=== PATIENT | male | born 1970 | race Caucasian/White ===

== ENCOUNTER 2019-06-30 07:28 | Emergency (ER) | payer OTHER ==
[~2019-06-30] VITALS: Ht 177.8 cm; Wt 83.1 kg
[2019-06-30] MEDS ORDERED: ONDANSETRON 2MG/ML, 2ML IVPush ONE (08:00)
[2019-06-30] MEDS ORDERED: SODIUM CHLORIDE 0.9% 1,000ML IVBOLUS ONE ×2 (08:00→10:00)
[2019-06-30] MEDS ORDERED: ONDANSETRON 2MG/ML, 2ML ONE (08:11)
--- NOTE | 2019-06-30 08:27 | NUR ---
PT MEDICATED TO MAY, LAYING IN BED, LIGHTS OFF TO PROMOTE REST, AFTER ERP TO BEDSIDE VIA TELEMEDICINE.
[2019-06-30 08:28] LABS: BASOPHILS # (AUTO) 0.01 x10^3/uL (0-0.1); BASOPHILS % (AUTO) 0 % (0-1); EOSINOPHILS # (AUTO) 0.12 x10^3/uL (0-0.4); EOSINOPHILS % (AUTO) 1 % (1-7); LYMPHOCYTES # (AUTO) 1.11 x10^3/uL (1-3.4); LYMPHOCYTES % (AUTO) 8 % (22-44); MD NO; MEAN CORPUSCULAR HEMOGLOBIN 31.6 pg (27.5-34.5); MEAN CORPUSCULAR HGB CONC 33.7 g/dL (33.2-36.2); MEAN CORPUSCULAR VOLUME 93.7 fL (81-97); MEAN PLATELET VOLUME 7.9 fL (7.4-10.4); MONOCYTES % (AUTO) 3 % (2-9); NEUTROPHILS # (AUTO) 13.08 x10^3/uL (1.8-6.8); NEUTROPHILS % (AUTO) 89 % (42-75); PLATELET COUNT 202 x10^3/uL (130-400); RED BLOOD COUNT 5.41 x10^6/uL (4.38-5.82); RED CELL DISTRIBUTION WIDTH 12.9 % (9.4-14.8)
[2019-06-30] MEDS ORDERED: morphine SULFATE 10 MG/ML, 1ML IVPush ONE ×2 (08:30→10:00)
[2019-06-30 08:32] LABS: MICROSCOPIC NOT IND
--- NOTE | 2019-06-30 08:32 | NUR ---
PT TO XRAY.
[2019-06-30 08:36] LABS: CALCIUM 9.4 mg/dL (8.5-10.1); CHLORIDE 108 mmol/L (98-107)
[2019-06-30 08:40] LABS: ALANINE AMINOTRANSFERASE 63 U/L (12-78); ALBUMIN 4.1 g/dL (3.4-5.0); ANION GAP 5 mmol/L (5-15); CREATININE 1.23 mg/dL (0.7-1.3)
[2019-06-30 08:42] LABS: ALKALINE PHOSPHATASE 79 U/L (45-117); BILIRUBIN,TOTAL 0.5 mg/dL (0.2-1.0); TOTAL PROTEIN 7.8 g/dL (6.4-8.2)
[2019-06-30] MEDS ORDERED: MORPHINE SULFATE 4 MG/ML, 1ML ONE ×2 (08:51→10:09)
--- NOTE | 2019-06-30 08:58 | NUR ---
PT LAYING IN BED, FIANCE AT BEDSIDE, RESPIRATIONS EVEN AND UNLABORED, WILL CONTINUE TO MONITOR.
--- NOTE | 2019-06-30 10:22 | NUR ---
SECOND LITER NS DISSCUSSED WITH MD JORDON, HELD PER OBJECTIVE CLINICAL SIGNS INCLUDING VS AND LABS.
[2019-06-30 11:09] VITALS: BP 133/89
== END 2019-06-30 11:12 | disposition home or self-care (01) ==
LOC: ED 08:05
DX: K64.8 Other hemorrhoids (principal); R10.84 Generalized abdominal pain; R11.0 Nausea; R19.7 Diarrhea, unspecified; Z90.89 Acquired absence of other organs; Z88.2 Allergy status to sulfonamides
CPT/HCPCS: 36415; 74021; 76705; 80053; 81003; 83690; 85025; 96361; 96374; 96375; 96376; 99285; J2270; J2405; J7030

== ENCOUNTER 2020-01-14 16:10 | Observation (INO) | payer OTHER ==
[~2020-01-14] VITALS: Ht 177.8 cm; Wt 82.2 kg
[2020-01-14] MEDS ORDERED: SODIUM CHLORIDE FLUSH 10ML SYR IVF ONE ×2 (17:00→18:30)
[2020-01-14 17:07] LABS: BASOPHILS % (AUTO) 0 % (0-1); EOSINOPHILS % (AUTO) 2 % (1-7); LYMPHOCYTES % (AUTO) 22 % (22-44); MEAN CORPUSCULAR HEMOGLOBIN 30.8 pg (27.5-34.5); MEAN CORPUSCULAR HGB CONC 33.6 g/dL (33.2-36.2); MEAN PLATELET VOLUME 7.9 fL (7.4-10.4); MONOCYTES % (AUTO) 6 % (2-9); NEUTROPHILS % (AUTO) 71 % (42-75); PLATELET COUNT 199 x10^3/uL (130-400); RED CELL DISTRIBUTION WIDTH 12.6 % (9.4-14.8)
[2020-01-14 17:11] LABS: MD NO
[2020-01-14 17:19] LABS: ALBUMIN 4.1 g/dL (3.4-5.0); ANION GAP 5 mmol/L (5-15); CALCIUM 9.5 mg/dL (8.5-10.1); CHLORIDE 108 mmol/L (98-107)
[2020-01-14 17:23] LABS: ALANINE AMINOTRANSFERASE 51 U/L (12-78); ALKALINE PHOSPHATASE 83 U/L (45-117); BILIRUBIN,TOTAL 0.6 mg/dL (0.2-1.0); CREATININE 1.26 mg/dL (0.7-1.3); TOTAL PROTEIN 7.4 g/dL (6.4-8.2)
--- NOTE | 2020-01-14 17:25 | NUR ---
PT IN GOWN IN [facility]. PT ATTACHED TO VS MONITORS. PIV ESTABLISHED. PT HAS CALL LIGHT WITHIN REACH AT THIS TIME; AWAITING ERP.
--- NOTE | 2020-01-14 17:58 | NUR ---
YELLOW SLIP SENT TO PHARMACY AT THIS TIME FOR IV ABX. IV FLUIDS INITIATED PER MAR AT THIS TIME.
[2020-01-14] MEDS ORDERED: SODIUM CHLORIDE 0.9% 1,000ML IVBOLUS ONE (18:00)
[2020-01-14] MEDS ORDERED: CEFOTETAN PMX 1GM/50ML 50 ML IVPB ONE (18:00)
--- NOTE | 2020-01-14 18:15 | NUR ---
COVID SWAB OBTAINED AND WALKED TO LAB AT THIS TIME.
--- NOTE | 2020-01-14 18:22 | NUR ---
REPORT OF PT TO DIRECTOR OF HEAD START AT THIS TIME. ALL QUESTIONS ANSWERED. PER OR, PT TO BE PICKED UP BY TRANSPORT STAFF WITHIN THE NEXT 5 MINUTES
[2020-01-14] MEDS ORDERED: EPINEPHRINE 1 MG/ML, 1ML ONE (18:33)
[2020-01-14] MEDS ORDERED: BUPIVACAINE/PF 0.5% ONE (18:33)
--- NOTE | 2020-01-14 18:34 | NUR ---
PT TO OR AT THIS TIME
[2020-01-14] MEDS ORDERED: MIDAZOLAM 1 MG/ML, 2ML ONE (18:55)
[2020-01-14] MEDS ORDERED: FENTANYL PF 250 MCG/5ML ONE (18:55)
[2020-01-14] MEDS ORDERED: BUPIVACAINE/EPI 0.5% 1:200K IM ONE (19:20)
[2020-01-14] MEDS ORDERED: LABETALOL 5MG/ML, 20ML IV PRN (19:30)
[2020-01-14] MEDS ORDERED: morphine SULFATE 10 MG/ML, 1ML IVPush PRN (19:30)
[2020-01-14] MEDS ORDERED: hydrALAzine 20 MG/ML, 1ML IV PRN (19:30)
[2020-01-14] MEDS ORDERED: ONDANSETRON 2MG/ML, 2ML IVPush PRN (19:30)
[2020-01-14] MEDS ORDERED: ACETAMINOPHEN 325 MG TABLET PO PRN (19:30)
[2020-01-14] MEDS ORDERED: OXYcodone 5 MG/5 ML ORAL.SOL UDC PO PRN ×2 (19:30→22:30)
[2020-01-14] MEDS ORDERED: GLYCOPYRROLATE 0.2MG/1ML, 5ML ONE (19:41)
[2020-01-14] MEDS ORDERED: NEOSTIGMINE 1 MG/ML, 10ML ONE (19:41)
[2020-01-14] MEDS ORDERED: CEFAZOLIN 1,000 MG ONE (19:41)
[2020-01-14] MEDS ORDERED: SUCCINYLCHOLINE 20 MG/ML, 10ML ONE (19:41)
[2020-01-14] MEDS ORDERED: ROCURONIUM 10MG/ML,5ML ONE (19:41)
[2020-01-14] MEDS ORDERED: PROPOFOL 10 MG/ML, 20ML ONE (19:41)
[2020-01-14] MEDS ORDERED: FENTANYL PF 100 MCG/2ML ONE ×2 (20:07→20:26)
[2020-01-14] MEDS ORDERED: MEPERIDINE/PF 25MG/ML,1ML ONE ×2 (20:07→20:37)
[2020-01-14] MEDS: FENTANYL PF 100 MCG/2ML IV PRN ×4 (20:11→20:38)
[2020-01-14] MEDS: MEPERIDINE/PF 25MG/0.5ML IVPush PRN ×2 (20:14→20:51)
[2020-01-14] MEDS ORDERED: OXYcodone 5 MG/5 ML ORAL.SOL UDC ONE (20:19)
[2020-01-14] MEDS ORDERED: HYDROmorphone 2 MG/ML, 1ML ONE (20:19)
[2020-01-14] MEDS: HYDROmorphone 1 MG/ML, 1ML INJ IVPush PRN ×2 (20:22→20:33)
[2020-01-14 21:51] VITALS: BP 118/79
[2020-01-14] MEDS ORDERED: DIPHENHYDRAMINE 25 MG CAPSULE PO PRN (22:30)
[2020-01-14] MEDS ORDERED: KETOROLAC 30 MG/1 ML IV SCH (22:30)
[2020-01-14] MEDS ORDERED: DIPHENHYDRAMINE 50 MG/ML, 1ML IV PRN (22:30)
[2020-01-14] MEDS ORDERED: POTASSIUM CHLORIDE 20 MEQ in D5%-0.45% NACL 1,000 ML IV SCH (22:30)
[2020-01-14] MEDS ORDERED: HYDROmorphone 2 MG/ML, 1ML IVPush PRN (22:30)
[2020-01-14] MEDS ORDERED: ACETAMINOPHEN 325 MG TABLET PO SCH (22:30)
[2020-01-14] MEDS ORDERED: PANT20TA2 PO (22:47)
[2020-01-14] MEDS ORDERED: AZEL137S4 NAS (22:47)
[2020-01-14] MEDS ORDERED: AMIT10TA PO (22:47)
[2020-01-14] MEDS ORDERED: LORA-445 PO (22:51)
[2020-01-15] MEDS ORDERED: ENOXAPARIN 40 MG/0.4 ML SQ SCH (07:00)
[2020-01-15] MEDS ORDERED: SODIUM CHLORIDE FLUSH 10ML SYR IVF SCH (09:00)
== END 2020-01-15 00:10 | disposition home or self-care (01) ==
LOC: ED 17:45 → EDIP 17:50 → ED 17:57 → 4NE 21:30
PROVIDERS: ADMIT Student in an Organized Health Care Education/Training Program; ATTEND Student in an Organized Health Care Education/Training Program
DX: K35.80 Unspecified acute appendicitis (principal); Z20.828 Contact with and (suspected) exposure to other viral communicable diseases; K21.9 Gastro-esophageal reflux disease without esophagitis
CPT/HCPCS: 36415; 44970; 80053; 85025; 87635; 88304; 93005; 96374; 99284; G0378; J0171; J0330; J0690; J1170; J1885; J2175; J2250; J2704; J2710; J3010; J7030; S0020

== ENCOUNTER → 2020-01-14 | Outpatient (CLI) | payer OTHER ==
[~2020-01-14] MED LIST: AMIT10TA PO; AZEL137S4 NAS; LORA-445 PO; OMNIPAQUE 350 MG/ML, 100ML BOTTLE ONE; PANT20TA2 PO
== END | disposition home or self-care (01) ==
LOC: CFH 12:46
PROVIDERS: ATTEND Nurse Practitioner Family
DX: K35.80 Unspecified acute appendicitis (principal)
CPT/HCPCS: 74177; Q9967